=== PATIENT | male | born 1965 | race Two or more races ===

== ENCOUNTER 2020-02-26 10:49 | Day surgery (SDC) | payer OTHER, SELFPAY ==
[~2020-02-26] VITALS: Ht 177.8 cm; Wt 120.2 kg
[2020-02-26] MEDS ORDERED: LIDOCAINE 2% 100 MG/5 ML UJET TP ONE (11:39)
[2020-02-26] MEDS ORDERED: fentaNYL citrate 0.05 MG/ML VIAL ONE (11:39)
[2020-02-26] MEDS ORDERED: fentaNYL citrate 0.05 MG/ML VIAL IVP ONE (12:55)
== END 2020-02-26 13:02 | disposition home or self-care (01) ==
LOC: MFCC 10:49 → MDS 10:49
PROVIDERS: ATTEND Internal Medicine Gastroenterology
DX: Z09 Encounter for follow-up examination after completed treatment for conditions other than malignant neoplasm (principal); D12.2 Benign neoplasm of ascending colon; D12.3 Benign neoplasm of transverse colon; E11.9 Type 2 diabetes mellitus without complications; Z88.2 Allergy status to sulfonamides; Z79.82 Long term (current) use of aspirin; Z90.49 Acquired absence of other specified parts of digestive tract; Z79.899 Other long term (current) drug therapy; Z20.828 Contact with and (suspected) exposure to other viral communicable diseases; Z98.890 Other specified postprocedural states
CPT/HCPCS: 45385; J3010; U0003